=== PATIENT | female | born 2000 | race Two or more races ===

== ENCOUNTER 2023-05-12 18:49 | Emergency (ER) | payer MEDICAID ==
[~2023-05-12] VITALS: Ht 165.1 cm; Wt 97.3 kg
[2023-05-12 18:55] VITALS: TEMP 98.1
[2023-05-12 19:46] VITALS: BP 124/80; PULSE 96; O2SAT 97
[2023-05-12] MEDS ORDERED: acetaminophen 325mg tablet PO ONE (21:10)
[2023-05-12 22:23] VITALS: RESP 12
== END 2023-05-12 22:29 | disposition home or self-care (01) ==
LOC: ER 18:50
DX: Z04.1 Encounter for examination and observation following transport accident (principal)
CPT/HCPCS: 99281; 99282